=== PATIENT | female | born 1955 | race Caucasian/White ===

== ENCOUNTER → 2016-12-04 | Outpatient (CLI) | payer MEDICARE, OTHER ==
[~2016-12-04] MED LIST: ANTIINFLAMATORY; ASPIRIN PO; ASPIRIN81 M1 PO; ASPIRIN81 M2 PO; BENZONATATE PO; FIORICET 50-321 EACH PO; GLUCOSAMINE PO; GLUCOSAMINE-CH1 EACH PO; HCTZ; HCTZ PO; LEVOTHYROXINE100 MCG PO; LISINOPRIL-HCTZ1 T18 PO; LISINOPRIL-HCTZ1 T20 PO; MELOXICAM15 MG PO; MOBIC PO; MOBIC15 MG PO; NABUMETONE PO; ST JOSEPH ASPIR81 MG PO; SYNTHROID0.05 MG PO; SYNTHROID0.1 MG PO; UNKNOWN MEDS; VITAMIN B12; VITAMIN D 22000 UNIT PO; ZESTORETIC 10-1 EACH PO; ZITHROMAX PO; [UNRECOGNIZED DRUG - OTHER] PO
--- NOTE | ~2016-12-04 | BD1 ---
[facility] A Service of [facility] & [facility] RADIOLOGY TEXT RESULTS PATIENT: AVRIL LOPEZ LOCATION: [facility] : 53 UNIT #: [id number] AGE: [address]: Geno Webster APRN SEX: F ORDER DR: [id number] [address] [id number] O MR#: [id number] Acc #: [id number] NAME: AVRIL LOPEZ : 1955 SEX: F STUDY DATE/TIME: 12/04/2016 8:55 UNIT: [facility] ROOM: STUDY DESCRIPTION: BD Dexa Bone Dens 1+ Site Attending Physician: Geno Webster A.P.R.N. Referring Physician: Geno Webster A.P.R.N. Ordering Physician: Geno Webster A.P.R.N. Primary Care Physician: Olivia Yee M.D. MEDICAL IMAGING REPORT This report is preliminary unless electronic signature is present. EXAM DXA scan, 12/04/2016 HISTORY Status post menopause with no hormone replacement therapy. Osteopenia. Hypertension with blood pressure medication for 15 years. Thyroid medication levothyroxine use for 15 years. Steroid use, prednisone for 2 days. Fracture of radial head and right arm in last 10 years. FINDINGS Bone mineral density in the lumbar spine from L1-L4 was 1.232 g/cm2 which is 0.4 standard deviations above the mean when compared to the young adult reference population which is within the range of normal. This is 0.7 standard deviations above the mean when compared to the age-matched population. Bone mineral density in the left femoral neck was 0.989 g/cm2 which is 0.4 standard deviations below the mean when compared to the young adult reference population which is within the range of normal. This is 0.2 standard deviations above the mean when compared to the age-matched population. Bone mineral density in the right femoral neck was 0.867 g/cm2 which is 1.2 standard deviations below the mean when compared to the young adult reference population which is characteristic of osteopenia. This is 0.6 standard deviations below the mean when compared to the age-matched population. IMPRESSION Bone mineral density in the lumbar spine and left hip within the range of normal and within the right hip characteristic of osteopenia. [facility] A Service of [facility] RADIOLOGY TEXT RESULTS PATIENT: AVRIL LOPEZ LOCATION: [facility] : 53 UNIT #: [id number] AGE: [address]: Geno Webster APRN SEX: F ORDER DR: Dictated by... Sam Howell M.D. THIS IS AN ELECTRONICALLY VERIFIED REPORT Sam Howell M.D. at 12/04/2016 5:34 PM Alisha TD: 12/04/2016 11:46 JOB #: [id number] MEDICAL IMAGING REPORT Page 1 of 1
== END | disposition home or self-care (01) ==
LOC: SRAD 10-21 10:30
DX: Z13.820 Encounter for screening for osteoporosis (principal); Z78.0 Asymptomatic menopausal state
CPT/HCPCS: 77080